=== PATIENT | female | born 1960 | race Caucasian/White ===

== ENCOUNTER 2017-06-12 22:02 | Emergency (ER) | payer SELFPAY ==
[~2017-06-12] VITALS: Ht 157.5 cm; Wt 110.0 kg
[2017-06-12] MEDS ORDERED: IBUPROFEN 800MG TABLET PO ONE (22:45)
[2017-06-12 23:35] LABS: BASOPHILS % 0.9 % (0.0-2.0); EOSINOPHILS % 3.6 % (0.0-5.0); HEMATOCRIT. 29.3 % (36.0-48.0); HEMOGLOBIN. 9.9 g/dL (12.0-16.0); LYMPHOCYTES % 24.2 % (20.0-50.0); MEAN CORPUSCULAR HEMOGLOBIN 27.9 pg (28.0-32.0); MEAN CORPUSCULAR VOLUME 82.7 fL (81.0-99.0); MEAN PLATELET VOLUME 6.7 fl (7.4-10.4); MONOCYTES % 6.5 % (2.0-8.0); NEUTROPHILS % 64.8 % (40.0-76.0); PLATELET 456 x1000/uL (130-400); RED BLOOD CELL COUNT 3.54 mill/uL (4.2-5.4); RED CELL DISTRIBUTION WIDTH 14.9 % (11.6-14.6)
[2017-06-12 23:52] LABS: TROPONIN I 0.06 ng/mL (0.00-0.04)
[2017-06-13 01:30] VITALS: BP 127/70
== END 2017-06-13 06:15 | disposition home or self-care (01) ==
LOC: ER 06-13 06:12
DX: R07.89 Other chest pain (principal); N60.01 Solitary cyst of right breast; I10 Essential (primary) hypertension
CPT/HCPCS: 36415; 71010; 76642; 80048; 84484; 85025; 99285; Z7610

== ENCOUNTER 2017-06-14 01:13 | Inpatient (IN) | payer SELFPAY ==
[~2017-06-14] VITALS: Ht 157.5 cm; Wt 74.0 kg
[2017-06-14 07:50] LABS: BASOPHILS % 1.4 % (0.0-2.0); EOSINOPHILS % 6.2 % (0.0-5.0); HEMATOCRIT. 32.8 % (36.0-48.0); HEMOGLOBIN. 10.9 g/dL (12.0-16.0); LYMPHOCYTES % 31.8 % (20.0-50.0); MEAN CORPUSCULAR HEMOGLOBIN 27.9 pg (28.0-32.0); MEAN CORPUSCULAR VOLUME 83.9 fL (81.0-99.0); MONOCYTES % 7.4 % (2.0-8.0); NEUTROPHILS % 53.2 % (40.0-76.0); PLATELET 495 x1000/uL (130-400); RED BLOOD CELL COUNT 3.91 mill/uL (4.2-5.4); RED CELL DISTRIBUTION WIDTH 15.2 % (11.6-14.6)
[2017-06-14 08:00] LABS: PROTHROMBIN TIME 10.2 sec
[2017-06-14 08:03] LABS: CARBON DIOXIDE 32 mEq/L (21-32); CHLORIDE 102 mEq/L (98-107)
[2017-06-14 08:07] LABS: TROPONIN I 0.05 ng/mL (0.00-0.04)
[2017-06-14] MEDS ORDERED: MORPHINE SULFATE 4 MG/ML CPJ (NOT FOR IM USE) IV STA (10:51)
[2017-06-14] MEDS ORDERED: ONDANSETRON HCL 4MG/2ML VIAL IV STA (10:51)
[2017-06-14] MEDS ORDERED: ASPIRIN 81MG TABLET PO STA (11:00)
[2017-06-14 11:25] LABS: BASOPHILS % 1.4 % (0.0-2.0); EOSINOPHILS % 6.9 % (0.0-5.0); HEMOGLOBIN. 10.5 g/dL (12.0-16.0); LYMPHOCYTES % 27.8 % (20.0-50.0); MEAN CORPUSCULAR HEMOGLOBIN 27.6 pg (28.0-32.0); MEAN CORPUSCULAR VOLUME 84.2 fL (81.0-99.0); MEAN PLATELET VOLUME 6.8 fl (7.4-10.4); MONOCYTES % 8.1 % (2.0-8.0); NEUTROPHILS % 55.8 % (40.0-76.0); PLATELET 445 x1000/uL (130-400); RED CELL DISTRIBUTION WIDTH 15.2 % (11.6-14.6)
[2017-06-14 11:40] LABS: CARBON DIOXIDE 31 mEq/L (21-32); CHLORIDE 104 mEq/L (98-107); TROPONIN I 0.05 ng/mL (0.00-0.04)
[2017-06-14 11:41] LABS: PARTIAL THROMBOPLASTIN TIME 24.7 sec (24.0-34.0); PROTHROMBIN TIME 10.4 sec
[2017-06-14 15:48] VITALS: BP 128/77
[2017-06-14] MEDS ORDERED: CLONIDINE 0.1MG TABLET PO PRN (16:30)
[2017-06-14] MEDS ORDERED: DOCUSATE SODIUM 100MG CAPSULE PO PRN (16:30)
[2017-06-14] MEDS ORDERED: GUAIFENESIN 200MG/10ML SUGAR FREE UDC PO PRN (16:30)
[2017-06-14] MEDS ORDERED: KETOROLAC 15MG/ML VIAL IV PRN (16:30)
[2017-06-14] MEDS ORDERED: NITROGLYCERIN 0.4MG TABLET SL SL PRN (16:30)
[2017-06-14] MEDS ORDERED: MAGNESIUM/ALUMINUM HYDROXIDE/SIMETHICONE 30ML UDC PO PRN (16:30)
[2017-06-14] MEDS ORDERED: DIPHENHYDRAMINE 50MG/ML VIAL IV PRN (16:30)
[2017-06-14] MEDS ORDERED: IPRATROPIUM/ALBUTEROL 0.5-3(2.5)MG/3ML NEB INH PRN (16:30)
[2017-06-14] MEDS ORDERED: NA PHOS,M-B/NA PHOS,DI-BA ENEMA 118ML PR PRN (16:30)
[2017-06-14] MEDS ORDERED: LORAZEPAM 2MG/ML CPJ IV PRN (16:30)
[2017-06-14] MEDS ORDERED: ONDANSETRON HCL 4MG/2ML VIAL IV PRN (16:30)
[2017-06-14] MEDS ORDERED: ACETAMINOPHEN 325MG TABLET PO PRN (16:30)
[2017-06-14] MEDS ORDERED: ENOXAPARIN 40MG/0.4ML SYR SUBCUT SCH (17:00)
[2017-06-14 18:01] VITALS: BP 143/70
[2017-06-14 19:12] VITALS: BP 126/75
[2017-06-14 20:00] VITALS: BP 116/56
[2017-06-14] MEDS ORDERED: ZOLPIDEM TARTRATE 5MG TABLET PO PRN (21:00)
[2017-06-14] MEDS: METOPROLOL TARTRATE 25MG TABLET PO SCH (21:00)
[2017-06-14 21:50] VITALS: BP 111/64
[2017-06-14 22:00] VITALS: BP 116/62
[2017-06-14 23:21] LABS: TROPONIN I 0.05 ng/mL (0.00-0.04)
[2017-06-15] VITALS: BP 113/61
[2017-06-15 02:00] VITALS: BP 121/69
[2017-06-15 04:00] VITALS: BP 129/61
[2017-06-15 06:36] LABS: *AMPHETAMINES SCREEN URINE NEGATIVE (NEGATIVE); *BARBITURATES SCREEN URINE NEGATIVE (NEGATIVE); *BENZODIAZEPINES SCREEN URINE PRESUMTIVE POSITIVE (NEGATIVE); *COCAINE SCREEN URINE NEGATIVE (NEGATIVE); CANNABINOID URINE SCREEN NEGATIVE (NEGATIVE); METHADONE URINE SCREEN NEGATIVE (NEGATIVE); OPIATES URINE SCREEN PRESUMTIVE POSITIVE (NEGATIVE); PHENCYCLIDINE URINE SCREEN NEGATIVE (NEGATIVE)
[2017-06-15 06:40] LABS: CREATINE KINASE MB FRACTION 1.7 ng/mL (0.5-3.6); TROPONIN I 0.06 ng/mL (0.00-0.04)
[2017-06-15 08:02] VITALS: BP 141/89
[2017-06-15] MEDS: METOPROLOL TARTRATE 25MG TABLET PO SCH (08:25)
[2017-06-15] MEDS ORDERED: PANTOPRAZOLE SODIUM 40 MG/VIAL IV SCH (09:00)
[2017-06-15] MEDS ORDERED: ASPIRIN 325MG EC TABLET PO SCH (09:00)
== END 2017-06-15 09:30 | disposition left against medical advice (07) | DRG 203 ==
LOC: ER 01:13 → 3WST 11:52 → ENRESERV 12:48
PROVIDERS: ADMIT Internal Medicine; ATTEND Internal Medicine
DX: R07.89 Other chest pain (principal); E44.0 Moderate protein-calorie malnutrition; D64.9 Anemia, unspecified; E78.00 Pure hypercholesterolemia, unspecified; I10 Essential (primary) hypertension; Z68.29 Body mass index [BMI] 29.0-29.9, adult
CPT/HCPCS: 36415; 71010; 80053; 80061; 80305; 82550; 82553; 83036; 83690; 83880; 84484; 85025; 85610; 85730; 93005; 96374; 96375; 99285; C9113; J1650; J2270; J2405

== ENCOUNTER 2017-06-16 02:58 | Emergency (ER) | payer SELFPAY ==
[~2017-06-16] VITALS: Ht 157.5 cm; Wt 78.0 kg
[2017-06-16 04:54] LABS: BASOPHILS % 1.1 % (0.0-2.0); EOSINOPHILS % 4.8 % (0.0-5.0); HEMATOCRIT. 30.1 % (36.0-48.0); HEMOGLOBIN. 9.9 g/dL (12.0-16.0); LYMPHOCYTES % 30.6 % (20.0-50.0); MEAN CORPUSCULAR HEMOGLOBIN 27.7 pg (28.0-32.0); MEAN CORPUSCULAR VOLUME 84.1 fL (81.0-99.0); MEAN PLATELET VOLUME 7.5 fl (7.4-10.4); MONOCYTES % 8.2 % (2.0-8.0); NEUTROPHILS % 55.3 % (40.0-76.0); PLATELET 369 x1000/uL (130-400); RED BLOOD CELL COUNT 3.58 mill/uL (4.2-5.4); RED CELL DISTRIBUTION WIDTH 14.9 % (11.6-14.6)
[2017-06-16 05:09] LABS: CARBON DIOXIDE 31 mEq/L (21-32); CHLORIDE 102 mEq/L (98-107)
[2017-06-16 05:41] VITALS: BP 115/37
== END 2017-06-16 06:05 | disposition home or self-care (01) ==
LOC: ER 02:58
DX: S39.012A Strain of muscle, fascia and tendon of lower back, initial encounter (principal); K61.1 Rectal abscess; F17.200 Nicotine dependence, unspecified, uncomplicated
CPT/HCPCS: 36415; 80053; 85025; 99284; Z7610

== ENCOUNTER 2017-06-17 06:08 | Emergency (ER) | payer SELFPAY ==
[~2017-06-17] VITALS: Ht 157.5 cm; Wt 78.0 kg
[2017-06-17 06:34] VITALS: BP 153/83
== END 2017-06-17 09:14 | disposition left against medical advice (07) ==
LOC: ER 08:59
DX: M54.5 Low back pain (principal); Z53.21 Procedure and treatment not carried out due to patient leaving prior to being seen by health care provider